=== PATIENT | female | born 1975 | race Caucasian/White ===

== ENCOUNTER 2025-05-15 06:00 | Day surgery (SDC) | payer OTHER, SELFPAY ==
[2025-04-28 11:03] LABS: Hematocrit 46.2 % (37.0-47.0); Hemoglobin 15.5 g/dL (12.0-16.0); Mean Corp Hgb Conc. 33.5 g/dL (33.0-37.0); Mean Corpuscular Volume 88.3 fL (81.0-99.0); Nucleated Red Blood Cells % 0 %; Platelet Count 226 10^3/uL (130-400); Red Cell Dist. Width 13.1 % (11.5-14.5)
[2025-04-28 11:29] LABS: Blood Urea Nitrogen 9 mg/dl (7-17); Calcium 9.5 mg/dl (8.4-10.2); Carbon Dioxide 24 mmol/L (22-30); Chloride 108 mmol/L (98-107); Glucose 93 mg/dl (70-99); Potassium 4.8 mmol/L (3.5-5.1); Sodium 141 mmol/L (135-145); eGFR > 60.00
[2025-04-28 11:43] LABS: Beta HCG Quantitative < 2.39 mIU/ml
[2025-04-28 14:08] VITALS: BMI 29.3
[2025-05-15] VITALS (13 sets, daily range): BP systolic 92–144; BP diastolic 57–100; BMI 29.3
[2025-05-15] MEDS: NORMOSOL-R/PLASMALYTE-A 1000 IV (06:29)
[2025-05-15] MEDS: TRANSDERM-SCOP 1 PATCH TRANSDERM (07:24)
[2025-05-15] MEDS: EMEND 40 MG PO (07:25)
[2025-05-15] MEDS: TYLENOL 1000 MG PO (07:25)
--- NOTE | 2025-05-15 10:12 | W.IMMPOSTOP ---
Surgical Immed Post Op Note
-
Primary Surgeon: Eugenia Narvaez DO
Basin Cleaner: MISAEL Krueger
Pre-op Diagnosis: Chronic pelvic pain, severe dysmenorrhea, endometriosis
Post-op Diagnosis: Chronic pelvic pain, severe dysmenorrhea, endometriosis, adhesions
Procedure Performed: Robotic total laparoscopic hysterectomy bilateral salpingo-oophorectomy, lysis of adhesions, fulguration of endometriosis
Anesthesia Type: General ET Dr. Castellano
Specimen / Cultures: Uterus, cervix, bilateral fallopian tubes and bilateral ovaries
Estimated Blood Loss: 10 mL
Urine output: 800 mL clear yellow urine
Complications: None
Operative Findings: Normal-sized uterus, normal-appearing cervix. Adhesions/scar tissue (presumably from endometriosis) at cervix. Normal-appearing tubes bilaterally. Left ovary appears normal. Right ovary with superficial endometriosis implants.
Endometriosis scarring noted right pelvic sidewall several centimeters above ureter. sigmoid colon with filmy adhesions to the left pelvic sidewall and left infundibulopelvic ligament.
Counts correct x 2.
Stable to recovery.
[2025-05-15] MEDS: COMPAZINE 5 MG IV (10:16)
[2025-05-15] MEDS: TORADOL 15 MG IV (12:01)
[2025-05-15] MEDS: REFRESH EYE DROPS (PF) 1 DROPS OPHTH (12:17)
== END 2025-05-15 12:20 | disposition home or self-care (01) ==
LOC: SDS 06:00
PROVIDERS: ATTENDING PHYSICIAN Obstetrics & Gynecology; FAMILY PHYSICIAN Family Medicine
DX: N80.00 Endometriosis of the uterus, unspecified (principal); N84.1 Polyp of cervix uteri; N72 Inflammatory disease of cervix uteri; N73.6 Female pelvic peritoneal adhesions (postinfective); N94.6 Dysmenorrhea, unspecified; G89.29 Other chronic pain
CPT/HCPCS: 58571; 36415; 80048; 84702; 85025; 86850; 86900; 86901; 88307